=== PATIENT | female | born 1950 | race Caucasian/White ===

== ENCOUNTER 2019-10-12 21:21 | Emergency (ER) | payer MEDICARE, OTHER ==
[2019-10-12] MEDS ORDERED: Nitroglycerin 0.4 MG Tab.SL SL ONE (22:07)
--- NOTE | 2019-10-12 22:19 | EDM.PDOC ---
ED HPI GENERAL MEDICAL PROBLEM - General Chief Complaint: Upper Extremity Injury/Pain Stated Complaint: LEFT ARM PAIN UP TO NECK AND KNOT IN BLOOD VEIN Time Seen by Provider: 10/12/19 21:28 Source of Information: Reports: Patient, Family History Limitations: Reports: No Limitations - History of Present Illness INITIAL COMMENTS - FREE TEXT/NARRATIVE: This is a 69-year-old female. She has been under some stress over the last few days due to her family member dying from cancer on . She states over the last 24 to 36 hours she has been having constant pain in her anterior chest and pain in her left arm that goes up into her shoulder and into her neck and it feels like her jaws tender as well. She supposedly has a history of some sort of possible heart problems was supposed to get a [employer] Flooring [employer]er but put it off because of this family member fighting the cancer. So she is concerned that possibly this pain in her chest and down her left arm could be related to her heart and she comes to the clinic for evaluation. She was given some nitroglycerin back in 2017 and it in 2018 though she has never used it. Treatments MANAGER LAB: Reports: EKG Left Arm Pain Score (Numeric/FACES): 6 - Related Data Allergies Allergy/AdvReac Type Severity Reaction Status Date / Time erythromycin base Allergy Swollen Verified 10/12/19 21:32 Eyes Influenza Virus Vaccines Allergy Other Verified 10/12/19 21:32 Home Meds: Home Meds Aspirin [Halfprin] 81 mg PO DAILY 10/12/19 [History] Nitroglycerin 0.4 mg SL ASDIRECTED PRN 10/12/19 [History] amLODIPine [Norvasc] 2.5 mg PO DAILY 10/12/19 [History] Nitroglycerin 0.4 mg SL ASDIRECTED PRN #1 bottle 10/13/19 [Rx] Past Medical History Cardiovascular History: Reports: Hypertension Social & Family History - Tobacco Use Smoking Status *Q: Never Smoker Review of Systems - Review of Systems Review Of Systems: See Below Constitutional: Denies: Chills, Fever Eyes: Reports: No Symptoms Ears: Reports: No Symptoms Nose: Reports: No Symptoms Mouth/Throat: Reports: No Symptoms Respiratory: Denies: Shortness of Breath, Wheezing, Cough Cardiovascular: Reports: Chest Pain GI/Abdominal: Reports: No Symptoms Genitourinary: Reports: No Symptoms Musculoskeletal: Reports: Neck Pain, Shoulder Pain, Arm Pain Skin: Reports: No Symptoms Neurological: Reports: No Symptoms Psychiatric: Reports: No Symptoms ED EXAM, GENERAL - Physical Exam Exam: See Below Exam Limited By: No Limitations General Appearance: Alert, WD/WN, No Apparent Distress Eye Exam: Bilateral Eye: Normal Inspection Ears: Normal External Exam, Normal Canal, Normal TMs Nose: Normal Inspection Throat/Mouth: Normal Inspection, Normal Lips, Normal Voice, No Airway Compromise Head: Normocephalic Neck: Supple, Other (Patient of the trapezius muscle up into the neck is exquisitely tender. Though she does move her neck freely despite the soreness in those muscles on palpation.) Respiratory/Chest: No Respiratory Distress, Lungs Clear, Normal Breath Sounds, Other (Patient of her anterior chest is exquisitely tender especially on the left side versus the right side but both sides are tender on palpation like she is got a costochondritis.) Cardiovascular: Regular Rate, Rhythm, No Murmur GI/Abdominal: Soft, Non-Tender Back Exam: Full Range of Motion Extremities: Normal Inspection, Normal Range of Motion, Other (I palpate her shoulder and the muscles of her upper arm she complains of pain. But she has full movement of her left arm and denies any numbness and tingling in her fingers.) Neurological: Alert, Oriented Psychiatric: Normal Affect, Normal Mood Skin Exam: Warm, Dry EKG INTERPRETATION EKG Date: 10/12/19 Time: 21:30 EKG Interpretation Comments: EKG shows a sinus rhythm rate of 68 there is a suggestion she is got Q waves in the inferior leads but I do not see anything that suggest acute ST or T wave changes and there is no evidence of acute ischemia. Course - Vital Signs Last Recorded V/S: Last Vital Signs Temp 98.0 F 10/12/19 21:32 Pulse 70 10/12/19 21:32 Resp 15 10/12/19 21:32 BP 143/81 H 10/12/19 22:17 Pulse Ox 96 10/12/19 21:32 - Orders/Labs/Meds Orders: Active Orders 24 hr Category Date Time Status EKG 12 Lead [EKG Documentation Completion] [RC] URGENT Care 10/12/19 21:35 Active Labs: Laboratory Tests 10/12/19 10/12/19 10/13/19 Range/Units 22:11 22:11 00:06 WBC 7.28 (3.98-10.04) K/mm3 RBC 4.56 (3.98-5.22) M/mm3 Hgb 12.8 (11.2-15.7) gm/dl Hct 39.4 (34.1-44.9) % MCV 86.4 (79.4-94.8) fl MCH 28.1 (25.6-32.2) pg MCHC 32.5 (32.2-35.5) g/dl RDW Std Deviation 39.3 (36.4-46.3) fL Plt Count 256 (182-369) K/mm3 MPV 10.3 (9.4-12.3) fl Neut % (Auto) 56.3 (34.0-71.1) % Lymph % (Auto) 28.7 (19.3-51.7) % [place] % (Auto) 11.4 (4.7-12.5) % Eos % (Auto) 2.5 (0.7-5.8) Baso % (Auto) 1.0 (0.1-1.2) % Neut # (Auto) 4.10 (1.56-6.13) K/mm3 Lymph # (Auto) 2.09 (1.18-3.74) K/mm3 [place] # (Auto) 0.83 H (0.24-0.36) K/mm3 Eos # (Auto) 0.18 (0.04-0.36) K/mm3 Baso # (Auto) 0.07 (0.01-0.08) K/mm3 Sodium 142 (136-145) mEq/L Potassium 3.8 (3.5-5.1) mEq/L Chloride 106 (98-107) mEq/L Carbon Dioxide 29 (21-32) mEq/L Anion Gap 10.8 (5-15) BUN 19 H (7-18) mg/dL Creatinine 1.0 (0.55-1.02) mg/dL Est Cr Clr Drug Dosing 37.60 mL/min Estimated GFR (MDRD) 55 (>60) mL/min BUN/Creatinine Ratio 19.0 H (14-18) Glucose 109 (80-115) mg/dL Calcium 9.8 (8.5-10.1) mg/dL Total Bilirubin 0.3 (0.2-1.0) mg/dL AST 13 L (15-37) U/L ALT 22 (14-59) U/L Alkaline Phosphatase 84 (46-116) U/L Troponin I < 0.017 < 0.017 (0.00-0.056) ng/mL Total Protein 6.5 (6.4-8.2) g/dl Albumin 3.5 (3.4-5.0) g/dl Globulin 3.0 gm/dL Albumin/Globulin Ratio 1.2 (1-2) Meds: Medications Discontinued Medications Generic Name Dose Route Start Last Admin Trade Name Amrita PRN Reason Stop Dose Admin Nitroglycerin 0.4 mg 10/12/19 22:07 10/12/19 22:17 Nitrostat SL 10/12/19 22:08 0.4 mg ONETIME ONE Administration - Re-Assessments/Exams Free Text/Narrative Re-Assessment/Exam: 10/12/19 22:20 I spoke to the patient that if she truly is having heart pain over these last 24 to 48 hours from the constant pain in her chest and her left arm that we should see a blip in her troponin and based on that we will determine whether or not this is musculoskeletal or possibly cardiac related. 10/13/19 01:46 The patient took a nitroglycerin and states that it might have made a difference as far as her arm soreness is concerned but her chest is still sore on palpation as well as her shoulder and her neck and even her arm is sore on palpation. I do not know if she is got a slight amount of angina going on but she certainly is not having a myocardial infarction according to her EKG and her troponins x2. I am very concerned about her and I have encouraged her to call her doctor on Monday and get referred directly to a casino attendant for continued work-up. She apparently 1 year ago was supposed to get worked up for heart but she put it off because her got cancer. She can no longer put this off. I also going to prescribe her some nitroglycerin because if this gets markedly worse with shortness of breath and sweating she needs to take a nitro and come back to the ER immediately. She states she understands this. Departure - Departure Time of Disposition: 01:47 Disposition: Home, Self-Care 01 Condition: Fair Clinical Impression: Angina pectoris Chest pain Qualifiers: Chest pain type: unspecified Qualified Code(s): R07.9 - Chest pain, unspecified - Discharge Information *PRESCRIPTION DRUG MONITORING PROGRAM REVIEWED*: Not Applicable *COPY OF PRESCRIPTION DRUG MONITORING REPORT IN PATIENT DAYSI: Not Applicable Prescriptions: Nitroglycerin 0.4 mg SL ASDIRECTED PRN #1 bottle PRN Reason: Chest Pain Instructions: Angina Pectoris, [id number] Referrals: Damaris Farrar MD [Primary Care Provider] - Forms: ED Department Discharge Additional Instructions: At home you do not need to be doing any strenuous activity or excessive walking or lifting, you need sedentary work and activity only until you follow-up with a casino attendant or your family doctor, use the nitroglycerin if this chest pain or arm pain seems to get worse with shortness of breath or sweating and then you need to come back to the ER immediately, I believe that you are having some angina as well as some musculoskeletal soreness but I am more concerned about your heart then I am the muscle soreness, return to the ER if you have complications Sepsis Event Note - Evaluation Sepsis Screening Result: No Definite Risk - Focused Exam Vital Signs: Vital Signs Temp Pulse Resp BP BP Pulse Ox 10/12/19 22:17 143/81 H 10/12/19 21:32 98.0 F 70 15 137/85 96 Date Exam was Performed: 10/13/19 Time Exam was Performed: 01:46 - My Orders Last 24 Hours: My Active Orders 10/12/19 21:35 EKG 12 Lead [EKG Documentation Completion] [RC] URGENT - Assessment/Plan Last 24 Hours: My Active Orders 10/12/19 21:35 EKG 12 Lead [EKG Documentation Completion] [RC] URGENT
== END 2019-10-13 03:06 | disposition home or self-care (01) ==
LOC: JD.ED 21:21
DX: I20.9 Angina pectoris, unspecified (principal); I10 Essential (primary) hypertension; Z88.1 Allergy status to other antibiotic agents; Z88.7 Allergy status to serum and vaccine; Z79.82 Long term (current) use of aspirin; Z79.899 Other long term (current) drug therapy
CPT/HCPCS: 36415; 80053; 84484; 85025; 93005; 99285; A9270; 93010; 99284

== ENCOUNTER 2020-01-14 11:06 | Emergency (ER) | payer MEDICARE, OTHER ==
[2020-01-14] MEDS ORDERED: Sodium Chloride 0.9% 10 ML Syringe FLUSH PRN (11:17)
[2020-01-14] MEDS ORDERED: Ketorolac 30 MG/ML SDV IVPUSH ONE (11:39)
--- NOTE | 2020-01-14 11:46 | EDM.PDOC ---
ED HPI GENERAL MEDICAL PROBLEM - General Chief Complaint: Chest Pain Stated Complaint: CHEST PAIN SENT BY DR FARRAR Time Seen by Provider: 01/14/20 11:16 Source of Information: Reports: Patient, Old Records, RN Notes Reviewed History Limitations: Reports: No Limitations - History of Present Illness INITIAL COMMENTS - FREE TEXT/NARRATIVE: Patient is a 69-year-old female who presents to the ED for the evaluation of her left-sided chest discomfort. Patient notes this is been going on for roughly 1 week now, this is intermittent, nothing seems to really make it worse , and there is also nothing that really seems to make it better. Patient notes that she does have blood pressure fluctuations with this, and states it does worsen when the blood pressure is increased, and lessens when the blood pressure gets too be into a normal range. The patient states that she is also noting fluctuations in her blood pressure, they have been as high as in the 160s to 170s systolically, she states she gets a headache and a pain that shoots down her neck when they are this high, but when her blood pressures are in the 115s systolically, she seems to be getting dizzy and lightheaded. Patient states that she is having some left-sided chest discomfort that she would characterize as more of a pressure type pain. She was recently diagnosed with a torn rotator cuff tear last week by Dr. Stubbs, and states that she had some cortisone injections this does seem to be helping a little bit. Patient rates her chest pain at about a 4 out of 10 today. Patient is complaining of some slight heartburn or indigestion, other than that she is denying any other sick-like symptoms. She states that when the pain is the worst she is experiencing mild shortness of breath, but this goes away when the chest pain subsides. Patient also states that her recently in October from pancreatic cancer. The patient states that she is a very active lady for 69 years old, she does lawn care, paints, cleans bathrooms, ETC. she states she has 1/2 cup of coffee per day, and denies any other bad habits like smoking, drinking, or drug use. Chest Pain Score (Numeric/FACES): 5 - Related Data Allergies Allergy/AdvReac Type Severity Reaction Status Date / Time erythromycin base Allergy Severe Swollen Verified 01/14/20 11:16 Eyes Influenza Virus Vaccines Allergy Severe Other Verified 01/14/20 11:16 Home Meds: Home Meds Aspirin [Halfprin] 81 mg PO DAILY 10/12/19 [History] amLODIPine [Norvasc] 2.5 mg PO DAILY 10/12/19 [History] Nitroglycerin 0.4 mg SL ASDIRECTED PRN #1 bottle 10/13/19 [Rx] Esomeprazole [NexIUM] 20 mg PO DAILY 01/14/20 [History] Naproxen Sodium [Aleve] 1 tab PO DAILY 01/14/20 [History] Naproxen [Naprosyn] 500 mg PO Q12HR #20 tab 01/14/20 [Rx] Orphenadrine [Norflex] 100 mg PO BID PRN #20 tab 01/14/20 [Rx] Rosuvastatin [Crestor] 10 mg PO DAILY 01/14/20 [History] Past Medical History HEENT History: Reports: Other (See Below) Other HEENT History: surgery to correct eyesight Cardiovascular History: Reports: High Cholesterol, Hypertension - Past Surgical History HEENT Surgical History: Reports: Eye Surgery, Tonsillectomy Female Surgical History: Reports: Hysterectomy Musculoskeletal Surgical History: Reports: Carpal Tunnel Social & Family History - Tobacco Use Smoking Status *Q: Never Smoker - Caffeine Use Caffeine Use: Reports: Coffee (down to 1/2 cup per day) - Alcohol Use Alcohol Use History: No - Recreational Drug Use Recreational Drug Use: No ED ROS GENERAL - Review of Systems Review Of Systems: Comprehensive ROS is negative, except as noted in HPI. ED EXAM, GENERAL - Physical Exam Exam: See Below Exam Limited By: No Limitations General Appearance: Alert, WD/WN, No Apparent Distress, Anxious (slightly) Eye Exam: Bilateral Eye: EOMI, Normal Inspection, PERRL Ears: Normal External Exam Nose: Normal Inspection Throat/Mouth: Normal Inspection, Normal Lips, Normal Teeth, Normal Gums, Normal Oropharynx, Normal Voice, No Airway Compromise Head: Atraumatic, Normocephalic Neck: Normal Inspection Respiratory/Chest: No Respiratory Distress, Lungs Clear, Normal Breath Sounds, No Accessory Muscle Use, Other (anterior left chest is tender with palpation to no one specific area.) Cardiovascular: Normal Peripheral Pulses, Regular Rate, Rhythm, No Edema, No Murmur Peripheral Pulses: 3+: Radial (L), Radial (R) GI/Abdominal: Normal Bowel Sounds, Soft, Non-Tender, No Distention, No Mass Extremities: Normal Inspection, Normal Capillary Refill Neurological: Alert, Oriented, Normal Cognition, No Motor/Sensory Deficits Psychiatric: Normal Affect, Normal Mood, Anxious (slightly, the patient talks in a fast elisabet, and seems to want to fill conversational voids) Skin Exam: Warm, Dry, Intact, Normal Color, No Rash EKG INTERPRETATION EKG Date: 01/14/20 Time: 11:14 Rhythm: NSR Rate (Beats/Min): 54 [place]: Normal P-Wave: Present QRS: Normal ST-T: Normal QT: Normal Comparison: No Change EKG Interpretation Comments: No obvious ischemia or acute ST changes noted, reviewed by myself and Dr. Dobbins. Course - Vital Signs Last Recorded V/S: Last Vital Signs Temp 98.4 F 01/14/20 11:16 Pulse 56 L 01/14/20 11:16 Resp 18 01/14/20 11:16 BP 158/86 H 01/14/20 11:16 Pulse Ox 99 01/14/20 11:16 - Orders/Labs/Meds Orders: Active Orders 24 hr Category Date Time Status EKG Documentation Completion [RC] STAT Care 01/14/20 11:17 Active Peripheral IV Care [RC] . DIRECTED Care 01/14/20 11:17 Active Chest 1V Frontal [CR] Stat Exams 01/14/20 11:17 Ordered Sodium Chloride 0.9% [Saline Flush] Med 01/14/20 11:17 Active 10 ml FLUSH ASDIRECTED PRN DME for Discharge [COMM] Routine Oth 01/14/20 11:39 Ordered Peripheral IV Insertion Adult [OM.PC] Stat Oth 01/14/20 11:17 Ordered Medication Orders Sodium Chloride (Saline Flush) 10 ml FLUSH ASDIRECTED PRN PRN Reason: Keep Vein Open Last Admin: 01/14/20 11:19 Dose: 10 ml Labs: Laboratory Tests 01/14/20 01/14/20 01/14/20 Range/Units 11:17 11:17 11:17 WBC 11.97 H (3.98-10.04) K/mm3 RBC 4.76 (3.98-5.22) M/mm3 Hgb 13.3 (11.2-15.7) gm/dl Hct 40.4 (34.1-44.9) % MCV 84.9 (79.4-94.8) fl MCH 27.9 (25.6-32.2) pg MCHC 32.9 (32.2-35.5) g/dl RDW Std Deviation 41.4 (36.4-46.3) fL Plt Count 289 (182-369) K/mm3 MPV 10.4 (9.4-12.3) fl Neutrophils % (Manual) 80 H (40-60) % Band Neutrophils % 0 (0-10) % Lymphocytes % (Manual) 10 L (20-40) % Atypical Lymphs % 0 % Monocytes % (Manual) 10 (2-10) % Eosinophils % (Manual) 0 L (0.7-5.8) % Basophils % (Manual) 0 L (0.1-1.2) Platelet Estimate Adequate RBC Morph Comment Normal PT 11.0 (9.7-12.0) SECONDS INR 1.01 APTT 24 (22-31) SECONDS Sodium 142 (136-145) mEq/L Potassium 3.6 (3.5-5.1) mEq/L Chloride 106 (98-107) mEq/L Carbon Dioxide 26 (21-32) mEq/L Anion Gap 13.6 (5-15) BUN 26 H (7-18) mg/dL Creatinine 0.7 (0.55-1.02) mg/dL Est Cr Clr Drug Dosing 53.71 mL/min Estimated GFR (MDRD) > 60 (>60) mL/min BUN/Creatinine Ratio 37.1 H (14-18) Glucose 103 (80-115) mg/dL Calcium 9.9 (8.5-10.1) mg/dL Magnesium 2.2 (1.8-2.4) mg/dl Total Bilirubin 0.4 (0.2-1.0) mg/dL AST 13 L (15-37) U/L ALT 30 (14-59) U/L Alkaline Phosphatase 85 (46-116) U/L Troponin I < 0.017 (0.00-0.056) ng/mL NT-Pro-B Natriuret Pep (0-125) pg/mL Total Protein 7.0 (6.4-8.2) g/dl Albumin 3.8 (3.4-5.0) g/dl Globulin 3.2 gm/dL Albumin/Globulin Ratio 1.2 (1-2) 01/14/20 Range/Units 11:17 WBC (3.98-10.04) K/mm3 RBC (3.98-5.22) M/mm3 Hgb (11.2-15.7) gm/dl Hct (34.1-44.9) % MCV (79.4-94.8) fl MCH (25.6-32.2) pg MCHC (32.2-35.5) g/dl RDW Std Deviation (36.4-46.3) fL Plt Count (182-369) K/mm3 MPV (9.4-12.3) fl Neutrophils % (Manual) (40-60) % Band Neutrophils % (0-10) % Lymphocytes % (Manual) (20-40) % Atypical Lymphs % % Monocytes % (Manual) (2-10) % Eosinophils % (Manual) (0.7-5.8) % Basophils % (Manual) (0.1-1.2) Platelet Estimate RBC Morph Comment PT (9.7-12.0) SECONDS INR APTT (22-31) SECONDS Sodium (136-145) mEq/L Potassium (3.5-5.1) mEq/L Chloride (98-107) mEq/L Carbon Dioxide (21-32) mEq/L Anion Gap (5-15) BUN (7-18) mg/dL Creatinine (0.55-1.02) mg/dL Est Cr Clr Drug Dosing mL/min Estimated GFR (MDRD) (>60) mL/min BUN/Creatinine Ratio (14-18) Glucose (80-115) mg/dL Calcium (8.5-10.1) mg/dL Magnesium (1.8-2.4) mg/dl Total Bilirubin (0.2-1.0) mg/dL AST (15-37) U/L ALT (14-59) U/L Alkaline Phosphatase (46-116) U/L Troponin I (0.00-0.056) ng/mL NT-Pro-B Natriuret Pep 398 H (0-125) pg/mL Total Protein (6.4-8.2) g/dl Albumin (3.4-5.0) g/dl Globulin gm/dL Albumin/Globulin Ratio (1-2) Meds: Medications Generic Name Dose Route Start Last Admin Trade Name Amrita PRN Reason Stop Dose Admin Sodium Chloride 10 ml 01/14/20 11:17 01/14/20 11:19 Saline Flush FLUSH 10 ml ASDIRECTED PRN Administration Keep Vein Open Discontinued Medications Generic Name Dose Route Start Last Admin Trade Name Amrita PRN Reason Stop Dose Admin Ketorolac Tromethamine 30 mg 01/14/20 11:39 01/14/20 11:48 Toradol IVPUSH 01/14/20 11:40 30 mg ONETIME ONE Administration - Re-Assessments/Exams Free Text/Narrative Re-Assessment/Exam: 01/14/20 11:51 Patient presents to the ED for evaluation of her left-sided chest discomfort, and blood pressure fluctuations. I do believe the blood pressure fluctuations could very well be secondary to some of the chest pain/discomfort she is experiencing. Patient will have some labs drawn, EKG was done and shows no obvious signs of ischemia, chest x-ray to be performed as well to rule out cardiac etiology. Highly suspect this is more of anxiety in nature. Also the patient's chest was tender with palpation, which would suggest musculoskeletal chest pain as well. I have also ordered 30mg IV Toradol for chest wall pain management. 01/14/20 12:05 Laboratory evaluation has returned, white blood cell count is mildly elevated, but attributed to possible stress response, BUN is mildly elevated at 26, troponin is within normal limits, and her BNP is mildly elevated at 398. I think most of the metabolic abnormalities could be due to slight dehydration in nature, not worried about the BNP at this time. She does not have any respiratory embarrassment. I do believe that her symptoms are most likely musculoskeletal chest wall pain combined with anxiety in nature. I will see if the patient would like to trial some Ativan on a daily basis to see if this does not help keep things more in check. I will discuss with the patient how and when to take her blood pressures, on the off chance that she is not doing them correctly. Have her follow-up with Dr. Farrar for an appointment sometime later this week, or early next week. Portable chest x-ray is also WNL, no sign of a consolidation or infiltrate. 01/14/20 12:22 Upon re-assessment, the patient states that the Toradol did help relieve most of her chest discomfort. The patient denied trying Ativan, as she states that her son had been given this erroneously in the past; and subsequently had an overdose, and does not want to take this medication. I will trial her on Norflex instead to see if this also helps her chest wall pain. Departure - Departure Time of Disposition: 12:07 Disposition: Home, Self-Care 01 Condition: Good Clinical Impression: Anterior chest wall pain, Elevated blood pressure reading in office with diagnosis of hypertension Prescriptions: Naproxen [Naprosyn] 500 mg PO Q12HR #20 tab Orphenadrine [Norflex] 100 mg PO BID PRN #20 tab PRN Reason: Spasms Instructions: Chest Wall Pain, [id number], Managing Your Hypertension Referrals: Damaris Farrar MD [Primary Care Provider] - Forms: ED Department Discharge Additional Instructions: You were evaluated in the ER today regarding your left-sided chest pain, and fluctuations in blood pressures. Laboratory evaluation demonstrates no cardiac etiology of your chest pain which is reassuring. Most of your chest pain is likely due to chest wall muscle strain in nature. Management of this will be anti-inflammatories like NSAIDs, and/or the possibility of a muscle relaxer. You already take Aleve on a daily basis, we will switch you to Naprosyn, which is a 500 mg tablet of naproxen, 1 tablet 2 times a day for the next 10 days or so to see if this does not help some of the chest pain subside, stop taking your over the counter Aleve while taking the prescription strength Naproxen. You have also been given a prescription for Norflex, 1 tablet 2 times a day as needed for muscle spasms. This medication can cause some slight sedation, recommend you do not operate heavy machinery while taking this medication until you know how it is going to affect your body. You have been given an educational handout on managing hypertension at home, in regards to blood pressure checks, you should be checking your blood pressure, when you are in a calm/restful state, and have been sitting down for at least 5 minutes; ideally in a non-stimulating environment. Blood pressure does fluctuate throughout the day with activity, etc. As you have been doing, please try to keep a blood pressure journal, and I recommend that you follow-up with your primary care provider within the next week to 10 days for reevaluation and to make sure that your blood pressures are staying within normal limits. No changes to your blood pressure medication have been made today. Please return to the ER at any time if symptoms change or worsen. Sepsis Event Note (ED) - Evaluation Sepsis Screening Result: No Definite Risk - Focused Exam Vital Signs: Vital Signs Temp Pulse Resp BP Pulse Ox 01/14/20 11:16 98.4 F 56 L 18 158/86 H 99 - My Orders Last 24 Hours: My Active Orders 01/14/20 11:17 EKG Documentation Completion [RC] STAT Peripheral IV Care [RC] . DIRECTED Chest 1V Frontal [CR] Stat Sodium Chloride 0.9% [Saline Flush] 10 ml FLUSH ASDIRECTED PRN Peripheral IV Insertion Adult [OM.PC] Stat 01/14/20 11:39 DME for Discharge [COMM] Routine - Assessment/Plan Last 24 Hours: My Active Orders 01/14/20 11:17 EKG Documentation Completion [RC] STAT Peripheral IV Care [RC] . DIRECTED Chest 1V Frontal [CR] Stat Sodium Chloride 0.9% [Saline Flush] 10 ml FLUSH ASDIRECTED PRN Peripheral IV Insertion Adult [OM.PC] Stat 01/14/20 11:39 DME for Discharge [COMM] Routine
--- NOTE | 2020-01-14 12:37 | CR ---
Chest: Portable view of the chest was obtained. Comparison: No prior chest imaging is available. Heart size is prominent but accentuated portable technique. Upper mediastinum is within normal limits. Prior cervical spine surgery is noted. Bony structures are otherwise grossly intact. Lungs are clear with no acute parenchymal change. Impression: 1. Findings as noted above. 2. Nothing acute is seen on portable chest x-ray. Diagnostic code #2 This report was dictated in MDT
== END 2020-01-14 12:50 | disposition home or self-care (01) ==
LOC: JD.ED 11:06
DX: R07.89 Other chest pain (principal); I10 Essential (primary) hypertension; E78.00 Pure hypercholesterolemia, unspecified; Z88.1 Allergy status to other antibiotic agents; Z88.7 Allergy status to serum and vaccine; Z79.82 Long term (current) use of aspirin; Z79.899 Other long term (current) drug therapy
CPT/HCPCS: 36415; 71045; 80053; 83735; 83880; 84484; 85007; 85027; 85610; 85730; 93005; 96374; 99285; J1885; 93010; 99284

== ENCOUNTER 2020-02-15 16:56 | Emergency (ER) | payer MEDICARE, OTHER ==
--- NOTE | 2020-02-15 18:35 | EDM.PDOC ---
ED HPI GENERAL MEDICAL PROBLEM - General Chief Complaint: Cardiovascular Problem Stated Complaint: BLACKED OUT TODAY HIGH BLOOD PRESSURE Time Seen by Provider: 02/15/20 17:18 Source of Information: Reports: Patient, RN Notes Reviewed - History of Present Illness INITIAL COMMENTS - FREE TEXT/NARRATIVE: 69 yr old lady had syncopal or near syncopal episode today earlier this past afternoon. Her BP was subsequently mildly elevated so advised to come here for eval. No chest pain or difficulty breathing. She did feel mildly dizzy before this happened. She has had somewhat frequent spells of this nature for the past several months, is scheduled to see a [employer] next month. No recent vomiting or diarrhea. - Related Data Allergies Allergy/AdvReac Type Severity Reaction Status Date / Time erythromycin base Allergy Severe Swollen Verified 02/15/20 17:11 Eyes Influenza Virus Vaccines Allergy Severe Other Verified 02/15/20 17:11 Home Meds: Home Meds Aspirin [Halfprin] 81 mg PO DAILY 10/12/19 [History] amLODIPine [Norvasc] 2.5 mg PO DAILY 10/12/19 [History] Nitroglycerin 0.4 mg SL ASDIRECTED PRN #1 bottle 10/13/19 [Rx] Esomeprazole [NexIUM] 20 mg PO DAILY 01/14/20 [History] Naproxen Sodium [Aleve] 1 tab PO DAILY 01/14/20 [History] Naproxen [Naprosyn] 500 mg PO Q12HR #20 tab 01/14/20 [Rx] Orphenadrine [Norflex] 100 mg PO BID PRN #20 tab 01/14/20 [Rx] Rosuvastatin [Crestor] 10 mg PO DAILY 01/14/20 [History] Past Medical History HEENT History: Reports: Other (See Below) Other HEENT History: surgery to correct eyesight Cardiovascular History: Reports: High Cholesterol, Hypertension - Past Surgical History HEENT Surgical History: Reports: Eye Surgery, Tonsillectomy Female Surgical History: Reports: Hysterectomy Musculoskeletal Surgical History: Reports: Carpal Tunnel Social & Family History - Tobacco Use Smoking Status *Q: Never Smoker Second Hand Smoke Exposure: No - Caffeine Use Caffeine Use: Reports: Coffee - Recreational Drug Use Recreational Drug Use: No ED ROS GENERAL - Review of Systems Review Of Systems: See Below Constitutional: Denies: Fever, Chills HEENT: Reports: No Symptoms Respiratory: Denies: Shortness of Breath Cardiovascular: Denies: Chest Pain GI/Abdominal: Denies: Abdominal Pain, Nausea, Vomiting Musculoskeletal: Denies: Neck Pain, Shoulder Pain, Arm Pain, Back Pain Skin: Denies: Rash Neurological: Reports: Dizziness (gone). Denies: Numbness, Tingling, Trouble Speaking, Difficulty Walking ED EXAM, GENERAL - Physical Exam Exam: See Below General Appearance: Alert, No Apparent Distress Eye Exam: Bilateral Eye: PERRL Throat/Mouth: Normal Inspection Head: Atraumatic Neck: Supple Respiratory/Chest: No Respiratory Distress, Lungs Clear, Normal Breath Sounds Cardiovascular: Regular Rate, Rhythm GI/Abdominal: Soft, Non-Tender Back Exam: No: CVA Tenderness (L), CVA Tenderness (R) Extremities: Normal Inspection. No: Pedal Edema, Leg Pain Neurological: Alert, Oriented, No Motor/Sensory Deficits Skin Exam: Warm, Dry, Normal Color EKG INTERPRETATION EKG Date: 02/15/20 Rhythm: NSR [place]: Normal P-Wave: Present QRS: Other (q waves lead III.) ST-T: Elevated (slight ST elevation V2) Course - Vital Signs Last Recorded V/S: Last Vital Signs Temp 98.2 F 02/15/20 17:05 Pulse 73 02/15/20 17:05 Resp 16 02/15/20 17:05 BP 154/75 H 02/15/20 17:05 Pulse Ox 98 02/15/20 17:05 - Orders/Labs/Meds Orders: Active Orders 24 hr Category Date Time Status EKG 12 Lead [EKG Documentation Completion] [RC] STAT Care 02/15/20 17:49 Active Holter Monitor 48 Hours [RC] .PRN Care 02/15/20 17:49 Active - Re-Assessments/Exams Free Text/Narrative Re-Assessment/Exam: 02/15/20 19:00 Initial BP very mildly elevated and than remaining readings very normal. Sinus rythm, no ectopy. Exam completely unremarkable. Will send home with holter moniter, discharge instr. as documented. Departure - Departure Time of Disposition: 18:32 Disposition: Home, Self-Care 01 Condition: Fair Clinical Impression: Syncope Qualifiers: Syncope type: unspecified Qualified Code(s): R55 - Syncope and collapse Instructions: Syncope, [id number] Referrals: Damaris Farrar MD [Primary Care Provider] - Forms: ED Department Discharge, ED Return to Work/School Form Additional Instructions: rest, drink plenty of water to maintain hydration. 48 hour holter moniter. Continue to check your blood pressure twice daily and keep a record of that for your medical provider. If your blood pressure is trending too low you blood pressure medication may need to be reduced. See your medical provider in about 1 week for recheck, return to ED if symptoms worsening in any way. Sepsis Event Note (ED) - Evaluation Sepsis Screening Result: No Definite Risk - Focused Exam Vital Signs: Vital Signs Temp Pulse Resp BP Pulse Ox 02/15/20 17:05 98.2 F 73 16 154/75 H 98 - My Orders Last 24 Hours: My Active Orders 02/15/20 17:49 EKG 12 Lead [EKG Documentation Completion] [RC] STAT Holter Monitor 48 Hours [RC] .PRN - Assessment/Plan Last 24 Hours: My Active Orders 02/15/20 17:49 EKG 12 Lead [EKG Documentation Completion] [RC] STAT Holter Monitor 48 Hours [RC] .PRN
== END 2020-02-15 18:56 | disposition home or self-care (01) ==
LOC: JD.ED 16:56
DX: R55 Syncope and collapse (principal); I10 Essential (primary) hypertension; E78.00 Pure hypercholesterolemia, unspecified; Z88.1 Allergy status to other antibiotic agents; Z88.7 Allergy status to serum and vaccine; Z79.82 Long term (current) use of aspirin; Z79.899 Other long term (current) drug therapy
CPT/HCPCS: 93005; 93010; 93225; 93226; 99282; 99284-25

== ENCOUNTER 2020-09-20 18:26 | Emergency (ER) | payer MEDICARE, OTHER ==
--- NOTE | 2020-09-20 19:27 | EDM.PDOC ---
ED HPI GENERAL MEDICAL PROBLEM - General Chief Complaint: Cardiovascular Problem Stated Complaint: HIGH BP Time Seen by Provider: 09/20/20 18:40 Source of Information: Reports: Patient, RN Notes Reviewed History Limitations: Reports: No Limitations - History of Present Illness INITIAL COMMENTS - FREE TEXT/NARRATIVE: Patient is a 70-year-old female presenting to the emergency department with complaints of a mild intermittent headache for the last few days as well as elevated blood pressures. Blood pressure readings at home this evening or as high as 171/89. Patient brought a list of her blood pressures for the last few days and the range has been anywhere from 1 40-1 70 systolically. She denies any significant chest pain, however states that she did have a little bit of chest discomfort and shortness of breath 2 days ago after being outside in the subzero temperatures feeding horses, however that resolved shortly after returning inside. She states she has been on blood pressure medications in the past, however approximate 1 year ago she was taken off of them as she was having episodes of dizziness and fatigue. Review of her past medical records show that she was on hydrochlorothiazide 12.5 mg daily as well as amlodipine 2.5 mg daily. Patient states she was taken off the hydrochlorothiazide first but that her symptoms continued, therefore she was taken off the amlodipine as well. Review of her last visit with Dr. Farrar shows that she did have a mildly elevated blood pressure and that they were monitoring. Blood pressure on triage was found to be elevated at 177/79. Vital signs were otherwise stable. Pulse 67, respiratory rate 18, oxygen 98% on room air, temperature 98.0 temporally. headache Pain Score (Numeric/FACES): 6 - Related Data Allergies Allergy/AdvReac Type Severity Reaction Status Date / Time erythromycin base Allergy Severe Swollen Verified 02/15/20 17:11 Eyes Home Meds: Home Meds Rosuvastatin [Crestor] 10 mg PO DAILY 01/14/20 [History] hydroCHLOROthiazide [Hydrochlorothiazide] 12.5 mg PO DAILY #30 cap 09/20/20 [Rx] Past Medical History HEENT History: Reports: Other (See Below) Other HEENT History: surgery to correct eyesight Cardiovascular History: Reports: High Cholesterol, Hypertension - Past Surgical History HEENT Surgical History: Reports: Eye Surgery, Tonsillectomy Female Surgical History: Reports: Hysterectomy Musculoskeletal Surgical History: Reports: Carpal Tunnel Social & Family History - Tobacco Use Tobacco Use Status *Q: Never Tobacco User - Caffeine Use Caffeine Use: Reports: Coffee - Recreational Drug Use Recreational Drug Use: No ED ROS GENERAL - Review of Systems Review Of Systems: See Below Constitutional: Reports: No Symptoms. Denies: Fever, Chills, Weakness, Fatigue HEENT: Reports: No Symptoms. Denies: Vision Change Respiratory: Reports: No Symptoms Cardiovascular: Reports: No Symptoms Endocrine: Reports: No Symptoms GI/Abdominal: Reports: No Symptoms : Reports: No Symptoms Musculoskeletal: Reports: No Symptoms Skin: Reports: No Symptoms Neurological: Reports: Headache (Mild intermittent). Denies: Dizziness Psychiatric: Reports: No Symptoms Hematologic/Lymphatic: Reports: No Symptoms Immunologic: Reports: No Symptoms ED EXAM, GENERAL - Physical Exam Exam: See Below General Appearance: Alert, WD/WN, No Apparent Distress Eye Exam: Bilateral Eye: Normal Inspection, PERRL Head: Atraumatic, Normocephalic Respiratory/Chest: No Respiratory Distress, Lungs Clear, Normal Breath Sounds, No Accessory Muscle Use, Chest Non-Tender Cardiovascular: Normal Peripheral Pulses, Regular Rate, Rhythm, No Edema, No Gallop, No JVD, No Murmur, No Rub Neurological: Alert, Oriented, CN II-XII Intact, Normal Cognition, Normal Gait, Normal Reflexes, No Motor/Sensory Deficits Psychiatric: Normal Affect, Normal Mood Skin Exam: Warm, Dry, Intact, Normal Color, No Rash Course - Vital Signs Last Recorded V/S: Last Vital Signs Temp 98 F 09/20/20 18:32 Pulse 67 09/20/20 18:32 Resp 18 09/20/20 18:32 BP 177/79 H 09/20/20 18:32 Pulse Ox 98 09/20/20 18:32 - Orders/Labs/Meds Orders: Active Orders 24 hr Category Date Time Status EKG Documentation Completion [RC] STAT Care 09/20/20 19:07 Active Labs: Laboratory Tests 09/20/20 09/20/20 Range/Units 19:15 19:15 WBC 7.00 (3.98-10.04) K/mm3 RBC 4.82 (3.98-5.22) M/mm3 Hgb 13.4 (11.2-15.7) gm/dl Hct 41.2 (34.1-44.9) % MCV 85.5 (79.4-94.8) fl MCH 27.8 (25.6-32.2) pg MCHC 32.5 (32.2-35.5) g/dl RDW Std Deviation 40.7 (36.4-46.3) fL Plt Count 278 (182-369) K/mm3 MPV 9.9 (9.4-12.3) fl Neut % (Auto) 59.7 (34.0-71.1) % Lymph % (Auto) 26.6 (19.3-51.7) % [place] % (Auto) 10.3 (4.7-12.5) % Eos % (Auto) 2.4 (0.7-5.8) Baso % (Auto) 1.0 (0.1-1.2) % Neut # (Auto) 4.18 (1.56-6.13) K/mm3 Lymph # (Auto) 1.86 (1.18-3.74) K/mm3 [place] # (Auto) 0.72 H (0.24-0.36) K/mm3 Eos # (Auto) 0.17 (0.04-0.36) K/mm3 Baso # (Auto) 0.07 (0.01-0.08) K/mm3 Sodium 142 (136-145) mEq/L Potassium 3.9 (3.5-5.1) mEq/L Chloride 106 (98-107) mEq/L Carbon Dioxide 27 (21-32) mEq/L Anion Gap 12.9 (5-15) BUN 14 (7-18) mg/dL Creatinine 0.7 (0.55-1.02) mg/dL Est Cr Clr Drug Dosing 52.95 mL/min Estimated GFR (MDRD) > 60 (>60) mL/min BUN/Creatinine Ratio 20.0 H (14-18) Glucose 88 (83-115) mg/dL Calcium 9.8 (8.5-10.1) mg/dL Total Bilirubin 0.4 (0.2-1.0) mg/dL AST 30 (15-37) U/L ALT 43 (14-59) U/L Alkaline Phosphatase 96 (46-116) U/L Troponin I < 0.017 (0.00-0.056) ng/mL Total Protein 7.1 (6.4-8.2) g/dl Albumin 3.9 (3.4-5.0) g/dl Globulin 3.2 gm/dL Albumin/Globulin Ratio 1.2 (1-2) Free T4 0.90 (0.76-1.46) ng/dL TSH 3rd Generation 1.165 (0.358-3.74) uIU/mL - Re-Assessments/Exams Free Text/Narrative Re-Assessment/Exam: Patient is a 70-year-old female presenting to the emergency department complaints of elevated blood pressure as well as intermittent mild headaches for the last few days. She does have a history of hypertension for which she was previously treated with hydrochlorothiazide and amlodipine, however these medications were stopped approximate 1 year ago as she was having episodes of dizziness and fatigue. Blood pressure in triage was found to be elevated at 177/79. I have ordered labs to include CBC, CMP, TSH, and free T4. 09/20/20 20:25 Hematology is grossly unremarkable. Thyroid is normal. EKG shows no acute abnormalities. Patient is quite concerned with given her elevated blood pressures. We will start her back on hydrochlorothiazide 12.5 mg daily. She states that Dr. Farrar is out of the office for the next week. Recommend that she take this daily and keep track of her blood pressures for the next week and then follow-up with Dr. Farrar when she is back in the office. Discharge instructions as documented. Departure - Departure Time of Disposition: 20:25 Disposition: Home, Self-Care 01 Condition: Good Clinical Impression: Elevated blood pressure reading in office with diagnosis of hypertension Prescriptions: hydroCHLOROthiazide [Hydrochlorothiazide] 12.5 mg PO DAILY #30 cap Instructions: Hypertension, Adult, [id number] Referrals: Damaris Farrar MD [Primary Care Provider] - Forms: ED Department Discharge Additional Instructions: You were seen in the emergency department this evening for intermittent headaches as well as elevated blood pressures over the course the last 3 days. Work-up in the ER included blood work and EKG of your heart. Work-up was found to be normal. Blood pressure was found to be elevated on arrival to the ER at 177/79. We will start you back on hydrochlorothiazide 12.5 mg daily. Take this medication as prescribed. Keep a log of your blood pressures over the course of the next week and then follow-up with Dr. Farrar when she returns to the office. Return to ER for any new or worsening concerns. Sepsis Event Note (ED) - Evaluation Sepsis Screening Result: No Definite Risk - Focused Exam Vital Signs: Vital Signs Temp Pulse Resp BP Pulse Ox 09/20/20 18:32 98 F 67 18 177/79 H 98 - My Orders Last 24 Hours: My Active Orders 09/20/20 19:07 EKG Documentation Completion [RC] STAT - Assessment/Plan Last 24 Hours: My Active Orders 09/20/20 19:07 EKG Documentation Completion [RC] STAT
== END 2020-09-20 20:41 | disposition home or self-care (01) ==
LOC: JD.ED 18:26
DX: I10 Essential (primary) hypertension (principal); E78.00 Pure hypercholesterolemia, unspecified; Z79.899 Other long term (current) drug therapy; Z88.1 Allergy status to other antibiotic agents
CPT/HCPCS: 36415; 80053; 84439; 84443; 84484; 85025; 93005; 93010; 99283; 99283-25

== ENCOUNTER 2021-01-21 15:37 | Emergency (ER) | payer BC, MEDICARE, OTHER ==
--- NOTE | 2021-01-21 16:08 | EDM.PDOC ---
ED HPI GENERAL MEDICAL PROBLEM - General Chief Complaint: Upper Extremity Injury/Pain Stated Complaint: PINKY FINGER INJURY Time Seen by Provider: 01/21/21 15:48 Source of Information: Reports: Patient History Limitations: Reports: No Limitations - History of Present Illness INITIAL COMMENTS - FREE TEXT/NARRATIVE: 70-year-old female presents the emergency department today with an injury to her left fifth finger, or pinky finger. Patient states that prior to arrival she was hammering of bent door hinge with a hammer. The location of the hinge was just above her head so she was reaching holding the hammer with her right hand when the hammer caught on the door hinge and slipped out of her hand. The hammer ended up falling onto her left fifth/pinky finger. She states the flat end of the hammer hit her finger. This injury occurred approximately 4 hours ago. She states her tetanus shot is up-to-date. left pinky Pain Score (Numeric/FACES): 9 - Related Data Allergies Allergy/AdvReac Type Severity Reaction Status Date / Time erythromycin base Allergy Severe Swollen Verified 01/21/21 15:52 Eyes Home Meds: Home Meds Rosuvastatin [Crestor] 10 mg PO DAILY 01/14/20 [History] hydroCHLOROthiazide [Hydrochlorothiazide] 12.5 mg PO DAILY #30 cap 09/20/20 [Rx] Past Medical History HEENT History: Reports: Other (See Below) Other HEENT History: surgery to correct eyesight Cardiovascular History: Reports: High Cholesterol, Hypertension - Past Surgical History HEENT Surgical History: Reports: Eye Surgery, Tonsillectomy Female Surgical History: Reports: Hysterectomy Musculoskeletal Surgical History: Reports: Carpal Tunnel Social & Family History - Tobacco Use Tobacco Use Status *Q: Never Tobacco User - Caffeine Use Caffeine Use: Reports: Coffee - Recreational Drug Use Recreational Drug Use: No Review of Systems - Review of Systems Review Of Systems: Comprehensive ROS is negative, except as noted in HPI. ED EXAM, GENERAL - Physical Exam Exam: See Below Exam Limited By: No Limitations General Appearance: Alert, WD/WN, No Apparent Distress Ears: Normal External Exam, Hearing Grossly Normal Nose: Normal Inspection Throat/Mouth: Normal Inspection, Normal Lips, Normal Voice, No Airway Compromise Head: Atraumatic Neck: Normal Inspection, Supple Respiratory/Chest: No Respiratory Distress, No Accessory Muscle Use Cardiovascular: Normal Peripheral Pulses, Regular Rate, Rhythm GI/Abdominal: No Distention (Female) Exam: Deferred Rectal (Female) Exam: Deferred Back Exam: Normal Inspection Extremities: Normal Range of Motion, Normal Capillary Refill. No: Normal Inspection (laceration noted to left 5th digit right along the lateral nailbed; flap laceration noted to the medial phallanyx on the left 5th digit) Neurological: Alert, Oriented, Normal Cognition Psychiatric: Normal Affect, Normal Mood Skin Exam: Warm, Dry, Normal Color, No Rash. No: Intact Lymphatic: No Adenopathy Course - Vital Signs Text/Narrative:: Upon assessment, CMS is positive to right fifth digit. She is able to bend and touch her pinky to her thumb. She states that it is swollen and tight however CMS is positive. There is a small superficial laceration noted to the left lateral nailbed. She also has a superficial flap laceration noted to the right medial phalanx area. I have ordered an xray of the finger. Last Recorded V/S: Last Vital Signs Temp 98 F 01/21/21 15:48 Pulse 70 01/21/21 15:48 Resp 18 01/21/21 15:48 BP 131/71 01/21/21 15:48 Pulse Ox 97 01/21/21 15:48 - Orders/Labs/Meds Orders: Active Orders 24 hr Category Date Time Status Fingers Fifth Digit Lt F4 [CR] Stat Exams 01/21/21 15:58 Taken - Re-Assessments/Exams Free Text/Narrative Re-Assessment/Exam: 01/21/21 16:27 Xray of right 5th finger was reviewed by myself and Dr. Arthur. No acute fracture is appreciated. Official radiologist report is pending. Pt's finger will be bandaged with antibiotic ointment and tube gauze and then she will be discharged to home. Departure - Departure Time of Disposition: 16:30 Disposition: Home, Self-Care 01 Condition: Good Clinical Impression: Soft tissue injury of finger Qualifiers: Encounter type: initial encounter Laterality: left Qualified Code(s): S69.92XA - Unspecified injury of left wrist, hand and finger(s), initial encounter - Discharge Information Referrals: Damaris Farrar MD [Primary Care Provider] - Forms: ED Department Discharge Additional Instructions: You were seen in the emergency department today with an injury to your left fifth finger. X-rays were completed and this did not show any acute fracture. The areas of laceration were superficial and you did not require suturing. A bandage was placed and this should stay on for approximately 2 days. Wash the wound twice daily with mild soap such as Dial or Noel's baby shampoo and pat the area dry. Apply bacitracin to the wound and place a bandage over the top. Once you remove the bandage after [address] some gauze in between your fourth and fifth fingers and then luzma tape them for the next 10 days. After that, you may resume normal activities. Sepsis Event Note (ED) - Evaluation Sepsis Screening Result: No Definite Risk - Focused Exam Vital Signs: Vital Signs Temp Pulse Resp BP Pulse Ox 01/21/21 15:48 98 F 70 18 131/71 97 - My Orders Last 24 Hours: My Active Orders 01/21/21 15:58 Fingers Fifth Digit Lt F4 [CR] Stat - Assessment/Plan Last 24 Hours: My Active Orders 01/21/21 15:58 Fingers Fifth Digit Lt F4 [CR] Stat
--- NOTE | 2021-01-21 19:39 | CR ---
Left fifth finger: 3 views centered to the left fifth finger were obtained. Comparison: No prior left fifth finger study or hand exam is available. Joint space narrowing is noted within the MCP, DIP and PIP joints. Diffuse soft tissue swelling is noted. No acute fracture or other acute osseous abnormality is seen. Impression: 1. Soft tissue swelling. 2. Degenerative change. 3. No acute osseous abnormality is appreciated. Diagnostic code #2
== END 2021-01-21 16:57 | disposition home or self-care (01) ==
LOC: JD.ED 15:37
DX: S61.217A Laceration without foreign body of left little finger without damage to nail, initial encounter (principal); E78.00 Pure hypercholesterolemia, unspecified; I10 Essential (primary) hypertension; Z88.1 Allergy status to other antibiotic agents; Z79.899 Other long term (current) drug therapy; W26.8XXA Contact with other sharp object(s), not elsewhere classified, initial encounter
CPT/HCPCS: 73140-26-F4; 73140-F4; 99282; 99283

== ENCOUNTER 2021-08-05 12:13 | Emergency (ER) | payer BC, MEDICARE, OTHER ==
--- NOTE | 2021-08-05 14:30 | US ---
Left lower extremity deep venous ultrasound: Duplex and color Doppler evaluation was obtained of the left common femoral, proximal greater saphenous, superficial femoral, popliteal, posterior tibial and peroneal veins. Right common femoral vein was also evaluated. Comparison: No prior venous imaging is available. Findings: Normal phasic flow, augmentation and compression are seen. Impression: 1. No findings of deep venous thrombosis within the left lower extremity or within the right common femoral vein. Diagnostic code #1
[2021-08-05] MEDS ORDERED: Ketorolac 30 MG/ML SDV IM ONE (14:36)
[2021-08-05] MEDS ORDERED: HYDROmorphone 1 MG/ML Syringe IM ONE (14:36)
--- NOTE | 2021-08-05 14:41 | EDM.PDOC ---
ED HPI GENERAL MEDICAL PROBLEM - General Chief Complaint: Lower Extremity Injury/Pain Stated Complaint: RT LEG PAIN EXTREME Time Seen by Provider: 08/05/21 13:43 Source of Information: Reports: Patient, RN Notes Reviewed History Limitations: Reports: No Limitations - History of Present Illness INITIAL COMMENTS - FREE TEXT/NARRATIVE: Patient 70-year-old female who presents to the ER for her left leg pain. Patient states that she does Dr. Jese Stubbs and gets injections in the left knee regularly but the next 1 is not scheduled until September 06. Patient states that she has had extreme pain into her left leg/knee, for about the last week and a half. States it seems to be worse with ambulation. When she sits still or is not moving, it seems to be okay. Not been taking anything for pain at home. No numbness or tingling distal to the knee. States the pain does seem to radiate up into her leg, she also does note that she has back issues. Patient is concerned about the possibility of a blood clot as she feels she just has a big charley horse in her left calf. There is some swelling about the left knee as well as compared to the right knee. Patient denies any other sick-like symptoms, fever/chills, cough/shortness of breath, nausea/vomiting/diarrhea. 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: advil Left Lower Leg Pain Score (Numeric/FACES): 10 - Related Data Allergies Allergy/AdvReac Type Severity Reaction Status Date / Time erythromycin base Allergy Severe Swollen Verified 01/21/21 15:52 Eyes Home Meds: Home Meds Rosuvastatin [Crestor] 10 mg PO DAILY 01/14/20 [History] hydroCHLOROthiazide [Hydrochlorothiazide] 12.5 mg PO DAILY #30 cap 09/20/20 [Rx] Aspirin [Aspirin EC] 81 mg PO DAILY 08/05/21 [History] Cholecalciferol (Vitamin D3) [Vitamin D3] 5,000 unit PO DAILY 08/05/21 [History] Cyanocobalamin (Vitamin B-12) [Vitamin B-12] 1,000 mg PO DAILY 08/05/21 [History] Esomeprazole Magnesium [Nexium] 40 mg PO DAILY 08/05/21 [History] oxyCODONE HCl/Acetaminophen [Oxycodone-Acetaminophen 5-325] 1 tab PO Q6H PRN #20 tablet 08/05/21 [Rx] predniSONE 20 mg PO ASDIRECTED #15 tab 08/05/21 [Rx] Past Medical History HEENT History: Reports: Other (See Below) Other HEENT History: surgery to correct eyesight Cardiovascular History: Reports: High Cholesterol, Hypertension - Past Surgical History HEENT Surgical History: Reports: Eye Surgery, Tonsillectomy Female Surgical History: Reports: Hysterectomy Musculoskeletal Surgical History: Reports: Carpal Tunnel Social & Family History - Caffeine Use Caffeine Use: Reports: Coffee Review of Systems - Review of Systems Review Of Systems: Comprehensive ROS is negative, except as noted in HPI. ED EXAM, GENERAL - Physical Exam Exam: See Below Exam Limited By: No Limitations General Appearance: Alert, WD/WN, No Apparent Distress Respiratory/Chest: No Respiratory Distress, Lungs Clear, Normal Breath Sounds, No Accessory Muscle Use, Chest Non-Tender Cardiovascular: Normal Peripheral Pulses, Regular Rate, Rhythm, No Edema Extremities: Normal Capillary Refill, Joint Swelling (about the left knee; seems more pronounced in the medial aspect), Limited Range of Motion (of left leg/knee d/t pain) Neurological: Alert, Oriented, Normal Cognition, No Motor/Sensory Deficits Psychiatric: Normal Affect, Normal Mood Skin Exam: Warm, Dry, Intact, Normal Color, No Rash Course - Vital Signs Last Recorded V/S: Last Vital Signs Temp 98.8 F 08/05/21 12:55 Pulse 87 08/05/21 12:55 Resp 20 08/05/21 12:55 BP 150/98 H 08/05/21 12:55 Pulse Ox 97 08/05/21 12:55 - Orders/Labs/Meds Meds: Medications Discontinued Medications Generic Name Dose Route Start Last Admin Trade Name Freq PRN Reason Stop Dose Admin Hydromorphone HCl 1 mg 08/05/21 14:36 08/05/21 15:04 Hydromorphone 1 Mg/Ml Syringe IM 08/05/21 14:37 1 mg ONETIME ONE Administration Ketorolac Tromethamine 30 mg 08/05/21 14:36 08/05/21 15:04 Ketorolac 30 Mg/Ml Sdv IM 08/05/21 14:37 30 mg ONETIME ONE Administration - Re-Assessments/Exams Free Text/Narrative Re-Assessment/Exam: 08/05/21 14:39 Patient presents to the ER for evaluation of her left knee and leg pain/swelling. Patient's ultrasound was read and there is no findings of a DVT at this time. Patient is having an exquisite amount of pain with some swelling. We will go ahead and do IM Toradol and IM Dilaudid to see if this helps relieve her pain and discomfort. Plan would be to send her home on something w ith pain and possible steroid burst due to suspected sciatic involvement. 08/05/21 15:44 Patient was feeling a little bit better at this time, we will get her and ambulate her to see how she is doing, plan would be to send her home with some pain medication and a course of prednisone for ongoing management. We will have the patient wrap her knee with Vahe wrap to see if this helps relieve some of the swelling in the knee. She will need to follow-up with Ortho for ongoing management. Departure - Departure Time of Disposition: 15:46 Disposition: Home, Self-Care 01 Condition: Good Clinical Impression: Swelling of left knee joint Left knee pain Qualifiers: Chronicity: acute Qualified Code(s): M25.562 - Pain in left knee - Discharge Information *PRESCRIPTION DRUG MONITORING PROGRAM REVIEWED*: Yes *COPY OF PRESCRIPTION DRUG MONITORING REPORT IN PATIENT DAYSI: No Prescriptions: oxyCODONE HCl/Acetaminophen [Oxycodone-Acetaminophen 5-325] 1 tab PO Q6H PRN #20 tablet PRN Reason: Pain predniSONE 20 mg PO ASDIRECTED #15 tab Instructions: Knee Effusion, [id number], Exercises for Chronic Knee Pain Referrals: Damaris Farrar MD [Primary Care Provider] - Forms: ED Department Discharge Additional Instructions: You have been evaluated in the ED for your left knee pain/swelling. Your ultrasound demonstrated no sign of acute blood clot at today's visit. Please use ice as tolerated to the affected area. You may elevate the affected area to provide further relief from swelling. You have been given an Vahe wrap for further compression of your left knee joint, please use as needed for compression. You may take Tylenol 500 mg or ibuprofen 600mg q6 hrs for pain relief. Please do so until you have a tolerable level of pain with activity. Do not exceed 4000mg Tylenol, Do not exceed 3200mg ibuprofen in a 24 hour time period. You were given a prescription for a strong pain medication, Oxycodone/acetaminophen 5/325, please take 1 tab every 6 hours as needed for pain not relieved by Tylenol or ibuprofen alone. Please note this does contain Tylenol in it, so do not take more than 4000 mg in a 24-hour time span. These medications can be addictive, so please take as few as possible to achieve adequate pain control. These meds can also be quite constipating, recommend that you increase your oral fluid intake and take a stool softener like MiraLAX while taking these medications. You have been given a another prescription for steroids, due to the swelling and possible sciatic component. Please take as directed. This medication was electronically sent to the [place] pharmacy located in the [facility] grocery store. Please call Ortho for follow-up and further evaluation Dr. Stubbs is our orthopedic surgeon, his office number is [phone]. Please call and set up an appointment as soon as possible for further management. Please return to ED if your symptoms should change or worsen. Sepsis Event Note (ED) - Focused Exam Vital Signs: Vital Signs Temp Pulse Resp BP Pulse Ox 08/05/21 12:55 98.8 F 87 20 150/98 H 97
[2021-08-05] MEDS ORDERED: Ondansetron 4 MG Tab.DIS PO ONE (16:32)
== END 2021-08-05 16:51 | disposition home or self-care (01) ==
LOC: JD.ED 12:13
DX: M25.562 Pain in left knee (principal); M79.89 Other specified soft tissue disorders; E78.00 Pure hypercholesterolemia, unspecified; I10 Essential (primary) hypertension; Z88.1 Allergy status to other antibiotic agents; Z79.899 Other long term (current) drug therapy
CPT/HCPCS: 93971; 96372; 99283; A9270; J1170; J1885

== ENCOUNTER 2022-07-17 11:41 | Emergency (ER) | payer MEDICARE, OTHER ==
[2022-07-17] MEDS ORDERED: Lidocaine 1% 5 ML VIAL INJECT ONE (12:41)
[2022-07-17] MEDS ORDERED: Lidocaine 1% 10 ML MDV INJECT ONE (12:50)
[2022-07-17] MEDS ORDERED: Lidocaine 1% 10 ML MDV ONE (12:51)
[2022-07-17] MEDS ORDERED: Diphtheria,Pertussis(Acell),Tetanus Vaccine 0.5 ML Syringe IM ONE ×2 (13:09→13:44)
== END 2022-07-17 14:05 | disposition home or self-care (01) ==
LOC: JD.ED 11:41
DX: S61.217A Laceration without foreign body of left little finger without damage to nail, initial encounter (principal); I10 Essential (primary) hypertension; Z88.1 Allergy status to other antibiotic agents; Z79.899 Other long term (current) drug therapy; Z23 Encounter for immunization; Z79.82 Long term (current) use of aspirin; W26.8XXA Contact with other sharp object(s), not elsewhere classified, initial encounter; Y99.0 Civilian activity done for income or pay
CPT/HCPCS: 12001; 90471; 90715; 99282-25

== ENCOUNTER 2022-09-21 06:15 | Day surgery (SDC) | payer MEDICARE, OTHER ==
[~2022-09-21 06:15] MED LIST: Acetaminophen 325 MG Tab PO ONE; Acetaminophen 325 MG Tab PO SCH; Morphine 8 MG, EPINEPHrine 0.3 MG, Cefuroxime 750 MG, Ketorolac 30 MG, Sodium Chloride ... PRN; Pregabalin 25 MG Cap PO SCH; oxyCODONE ER 10 MG TAB.ER PO SCH
[2022-09-21] MEDS: Lactated Ringers 1,000 ML IV SCH ×2 (06:15→08:50)
[2022-09-21] MEDS ORDERED: Vancomycin 1 GM SDV ONE (06:29)
[2022-09-21] MEDS ORDERED: Tranexamic Acid 1,000 MG/10 ML Vial ONE (06:29)
[2022-09-21] MEDS ORDERED: fentaNYL 100 MCG/2 ML SDV ONE (07:00)
[2022-09-21] MEDS ORDERED: Propofol 200 MG/20 ML SDV ONE (07:00)
[2022-09-21] MEDS ORDERED: Midazolam 1 MG/ML 2 ML SDV ONE (07:00)
[2022-09-21] MEDS ORDERED: ceFAZolin 2 GM Vial ONE (07:01)
[2022-09-21] MEDS ORDERED: Ondansetron 4 MG/2 ML SDV IVPUSH PRN (07:20)
[2022-09-21] MEDS ORDERED: fentaNYL 100 MCG/2 ML SDV IVPUSH PRN (07:20)
[2022-09-21] MEDS: Triamcinolone Acetonide 40 MG/ML 1 ML SDV ONE ×2 (08:12→08:17)
[2022-09-21] MEDS: Bupivacaine 0.25% 10 ML SDV ONE ×2 (08:12→08:17)
[2022-09-21] MEDS ORDERED: EPINEPHrine 1 MG/ML SDV ONE (08:28)
[2022-09-21] MEDS ORDERED: Ropivacaine 0.5% 5 MG/ML 30 ML SDV ONE (08:28)
[2022-09-21] MEDS ORDERED: oxyCODONE 5 MG Tab PO PRN (09:46)
== END 2022-09-21 14:32 | disposition home or self-care (01) ==
LOC: JD.SDS 06:15
PROVIDERS: ATTEND Orthopaedic Surgery
DX: M17.0 Bilateral primary osteoarthritis of knee (principal); F41.8 Other specified anxiety disorders; K21.9 Gastro-esophageal reflux disease without esophagitis; E78.5 Hyperlipidemia, unspecified; I10 Essential (primary) hypertension; M81.0 Age-related osteoporosis without current pathological fracture; I25.10 Atherosclerotic heart disease of native coronary artery without angina pectoris; E78.00 Pure hypercholesterolemia, unspecified; I25.2 Old myocardial infarction; F41.9 Anxiety disorder, unspecified; Z88.1 Allergy status to other antibiotic agents; Z88.8 Allergy status to other drugs, medicaments and biological substances; Z79.899 Other long term (current) drug therapy
CPT/HCPCS: 0055T; 20610; 27447; 64447; 73560; 97110; 97116; 97161; A9270; C1713; C1776; J0171; J0690; J0697; J1885; J2250; J2270; J2405; J2795; J3010; J3301; J3370; J3490; J7120; 01402; 99100; J2704

== ENCOUNTER 2023-10-23 06:30 | Day surgery (SDC) | payer MEDICARE, OTHER ==
[~2023-10-23 06:30] MED LIST changes: -Acetaminophen 325 MG Tab PO ONE; -Acetaminophen 325 MG Tab PO SCH; +Lactated Ringers 1,000 ML IV SCH; -Pregabalin 25 MG Cap PO SCH; +Sodium Chloride 0.9% 10 ML Syringe FLUSH PRN; +Sodium Chloride 0.9% 10 ML Syringe FLUSH SCH; -oxyCODONE ER 10 MG TAB.ER PO SCH
[2023-10-23] MEDS ORDERED: Ropivacaine 0.5% 5 MG/ML 30 ML SDV ONE (06:36)
[2023-10-23] MEDS ORDERED: EPINEPHrine 1 MG/ML SDV ONE (06:36)
[2023-10-23] MEDS ORDERED: Lidocaine 1% 5 ML VIAL ONE (06:45)
[2023-10-23] MEDS: Lactated Ringers 1,000 ML IV SCH (06:45)
[2023-10-23] MEDS ORDERED: ceFAZolin 2 GM Vial ONE (06:46)
[2023-10-23] MEDS ORDERED: fentaNYL 100 MCG/2 ML SDV ONE (06:46)
[2023-10-23] MEDS ORDERED: Propofol 200 MG/20 ML SDV ONE (06:46)
[2023-10-23] MEDS ORDERED: Midazolam 1 MG/ML 2 ML SDV ONE (06:46)
[2023-10-23] MEDS ORDERED: Ondansetron 4 MG/2 ML SDV IVPUSH PRN (07:51)
[2023-10-23] MEDS ORDERED: fentaNYL 100 MCG/2 ML SDV IVPUSH PRN (07:51)
[2023-10-23] MEDS ORDERED: Lactated Ringers 1,000 ML ONE (08:11)
[2023-10-23] MEDS ORDERED: ePHEDrine 50 MG/ML SDV ONE (08:13)
[2023-10-23] MEDS ORDERED: Dexamethasone 4 MG/ML 5 ML MDV ONE (08:48)
[2023-10-23] MEDS ORDERED: Ondansetron 4 MG/2 ML SDV ONE (08:48)
[2023-10-23] MEDS ORDERED: dexmedeTOMIDine HCl 200 MCG/2 ML SDV ONE (08:49)
[2023-10-23] MEDS: Tranexamic Acid 1,000 MG/10 ML Vial ONE (08:54)
[2023-10-23] MEDS: Vancomycin 1 GM SDV ONE (08:54)
[2023-10-23] MEDS: Morphine 8 MG, EPINEPHrine 0.3 MG, Cefuroxime 750 MG, Ketorolac 30 MG, Sodium Chloride ... PRN (08:55)
[2023-10-23] MEDS ORDERED: Ketorolac 15 MG/ML SDV ONE (09:31)
[2023-10-23] MEDS ORDERED: Acetaminophen/HYDROcodone 325-5 MG Tab PO PRN (10:08)
== END 2023-10-23 13:30 | disposition home or self-care (01) ==
LOC: JD.SDS 06:30
PROVIDERS: ATTEND Orthopaedic Surgery
DX: M17.11 Unilateral primary osteoarthritis, right knee (principal); I10 Essential (primary) hypertension; E78.00 Pure hypercholesterolemia, unspecified; K21.9 Gastro-esophageal reflux disease without esophagitis; I25.10 Atherosclerotic heart disease of native coronary artery without angina pectoris; Z79.82 Long term (current) use of aspirin; Z79.899 Other long term (current) drug therapy; Z88.1 Allergy status to other antibiotic agents; Z88.8 Allergy status to other drugs, medicaments and biological substances
CPT/HCPCS: 0055T; 27447; 64447; 73560; 97110; 97116; 97161; C1713; C1776; J0171; J0690; J0697; J1100; J1885; J2250; J2270; J2405; J2704; J2795; J3010; J3370; J7030; J7120; 01402; 99100; J3490

== ENCOUNTER 2024-06-03 07:01 | Day surgery (SDC) | payer MEDICARE, OTHER ==
[~2024-06-03 07:01] MED LIST changes: -Lactated Ringers 1,000 ML IV SCH; +Lidocaine 1% 4 ML ONE; +Lidocaine 1% PF 2 ML SDV ONE; -Morphine 8 MG, EPINEPHrine 0.3 MG, Cefuroxime 750 MG, Ketorolac 30 MG, Sodium Chloride ... PRN; +Propofol 200 MG/20 ML SDV ONE
[2024-06-03] MEDS: Lactated Ringers 1,000 ML IV SCH (07:25)
[2024-06-03] MEDS ORDERED: Propofol 200 MG/20 ML SDV ONE (08:32)
[2024-06-03] MEDS ORDERED: ePHEDrine 50 MG/ML SDV ONE (09:58)
== END 2024-06-03 10:10 | disposition home or self-care (01) ==
LOC: JD.SDS 07:01
PROVIDERS: ATTEND Surgery
DX: K29.50 Unspecified chronic gastritis without bleeding (principal); K44.9 Diaphragmatic hernia without obstruction or gangrene; K57.30 Diverticulosis of large intestine without perforation or abscess without bleeding; K21.9 Gastro-esophageal reflux disease without esophagitis; I10 Essential (primary) hypertension; F41.8 Other specified anxiety disorders; Z79.899 Other long term (current) drug therapy; Z88.1 Allergy status to other antibiotic agents
CPT/HCPCS: 43239; 45378; J2704; J7120; 00813; 99100; J3490